=== PATIENT | male | born 1970 | race Caucasian/White ===

== ENCOUNTER 2022-01-15 00:44 | Day surgery (SDC) | payer BC, SELFPAY ==
[2022-01-01 13:58] VITALS: BMI 29.5
--- NOTE | 2022-01-14 10:43 | P.PNAN_ITS ---
Anes - Initial Pre Proc Eval Procedure: Operation Date: 01/15/22 08:30 Proposed Procedures p Screening Colonoscopy - Giuseppe Gurrola MD Date/Time: 01/14/22 10:43 Surgeon: Giuseppe Gurrola MD Pre Op Diagnosis: neoplasm screening Patient Data Age: 51 Gender: M Height: 1.75 m Weight: 90.9 kg Allergies Allergy/AdvReac Type Severity Reaction Status Date / Time Iodinated Contrast Media Allergy Mild Rash Verified 01/15/22 07:09 Home Medications Medication Instructions Recorded Confirmed Type azelastine 137 mcg (0.1 %) nasal 2 spray intranasal Q12H #30 mL 11/17/21 01/01/22 Rx spray aerosol carvedilol 25 mg tablet 25 mg PO Q12H #180 tabs 11/17/21 01/01/22 Rx empagliflozin 25 mg tablet 25 mg PO DAILY #90 tabs 11/17/21 01/01/22 Rx (Jardiance) losartan 100 mg tablet 100 mg PO DAILY #90 tabs 11/17/21 01/01/22 Rx metformin 500 mg tablet,extended 500 mg PO TIDWMEAL #270 tabs 11/17/21 01/01/22 Rx release 24 hr Patient hx anesthesia problems: none Family hx anesthesia problems: none Results Review: All pre-operative results and documents have been reviewed as part of the pre- operative evaluation. [facility] Past Medical History Medical History (Updated 01/14/22 @ 10:44 by Deng Shaikh DO) Essential (primary) hypertension Type 2 diabetes mellitus without complications Family History Family History Father Hypertension Mother Hypertension Sibling Family history of diabetes mellitus in first degree relative Social History Social History Smoking status: Former smoker Second hand tobacco smoke exposure: No Smoking end date: 05/02/13 Alcohol intake: never Anes - Eval Final PreProcedure Day of Procedure 01/14/22 10:43 Patient weight: overweight Heart: regular rate and rhythm Lungs: clear to auscultation Airway: Mallampati scale class II and special considerations poor dentition Neurological: alert and oriented Last oral intake: >/= 8 hours ASA classification: III Emergent: no Anesthetic plan: proceed Anesthesia type and monitoring: general GIVS and standard monitoring Results Review: All pre-operative results and documents have been reviewed as part of the pre- operative evaluation. Informed Consent: The patient's anesthetic plan and its attendant risks and benefits were discussed with the patient/family/POA. Questions were solicited and answers provided to the satisfaction of the patient/family/POA.
[2022-01-15 07:10] VITALS: BP 145/89; PULSE 78; RESP 20; TEMP 36.4; O2SAT 100; BMI 29.7
[2022-01-15] MEDS: LACTATED RINGERS 1,000 ML 150 ML IV CONT (07:19)
[2022-01-15 07:22] LABS: Glucose Point of Care 121 mg/dl (65-105)
--- NOTE | 2022-01-15 08:16 | PM.HPGS ---
History of Present Illness History of Present Illness Consent: Risks, benefits, and alternatives have been discussed and questions answered. Patient agrees to proceed with procedure. Chief complaint: neoplasm screening Narrative: Darshan Turner is a 51 year old male here for first screening colonoscopy Review of Systems Constitutional: Constitutional: Denies headache(s) and Denies weakness Eyes: Eyes: Denies blurry vision ENT: Reports Normal hearing present, Denies headache(s) and Denies neck pain Cardiovascular: Cardiovascular: Denies chest pain and Denies dyspnea Respiratory: Respiratory: Denies dyspnea Gastrointestinal: Gastrointestinal: Reports no additional gastrointestinal complaints Genitourinary: Genitourinary: Denies dysuria Musculoskeletal: Musculoskeletal: Denies neck pain Integumentary/Breasts: Skin/Breast: Denies dry skin Neurologic: Reports Normal hearing present, Denies headache(s) and Denies weakness Psychiatric: Psychiatric: Denies anxiety Endocrine: Endocrine: Denies change in body appearance Hematologic/Lymphatic: Hematologic/Lymphatic: Denies easy bleeding Allergic/Immunologic: Allergic/Immunologic: Denies urticaria [facility] Past Medical History Medical History (Updated 01/15/22 @ 08:17 by Giuseppe Gurrola MD) Colon cancer screening Essential (primary) hypertension Type 2 diabetes mellitus without complications Family History Family History Father Hypertension Mother Hypertension Sibling Family history of diabetes mellitus in first degree relative Social History Social History Smoking status: Former smoker Second hand tobacco smoke exposure: No Smoking end date: 05/02/13 Alcohol intake: never Meds Home Medications and Allergies Home Medications Medication Instructions Recorded Confirmed Type azelastine 137 mcg (0.1 %) nasal 2 spray intranasal Q12H #30 mL 11/17/21 01/01/22 Rx spray aerosol carvedilol 25 mg tablet 25 mg PO Q12H #180 tabs 11/17/21 01/01/22 Rx empagliflozin 25 mg tablet 25 mg PO DAILY #90 tabs 11/17/21 01/01/22 Rx (Jardiance) losartan 100 mg tablet 100 mg PO DAILY #90 tabs 11/17/21 01/01/22 Rx metformin 500 mg tablet,extended 500 mg PO TIDWMEAL #270 tabs 11/17/21 01/01/22 Rx release 24 hr Allergies Allergy/AdvReac Type Severity Reaction Status Date / Time Iodinated Contrast Media Allergy Mild Rash Verified 01/15/22 07:09 Vital Signs Vital Signs - 24 hr 01/15/22 07:10 Temperature 97.6 F Pulse Rate 78 Respiratory Rate 20 Blood Pressure 145/89 H Pulse Oximetry 100 Oxygen Delivery Room Air Exam Const: General: comfortable and no acute distress HENMT: General nose exam: Normal nares present Eyes: General: appearance normal, both eyes and all related structures Neck: Neck: no JVD Resp: Auscultation: clear to auscultation bilaterally Cardio: Rate: regular rate Rhythm: regular rhythm GI: Inspection: non-distended GI Palp: Yes Soft to palpation Skin: General skin exam: normal color Neuro: General: gait normal Speech: normal speech Extrem: General: normal to inspection Psych: Mental Status: mental status grossly normal Assessment and Plan Assessment and plan (1) Colon cancer screening: Code(s): Z12.11 - Encounter for screening for malignant neoplasm of colon Status: Acute Assessment and Plan: colonoscopy
[2022-01-15 08:40] VITALS: BP 113/78; PULSE 74; RESP 18; O2SAT 95
[2022-01-15 08:50] VITALS: BP 110/77; PULSE 75; RESP 22; O2SAT 95
[2022-01-15 09:00] VITALS: BP 124/89; PULSE 71; RESP 14; O2SAT 98
== END 2022-01-15 09:05 | disposition home or self-care (01) ==
PROVIDERS: PCP Internal Medicine; Visit Provider Internal Medicine Gastroenterology
PROC: 0DJD8ZZ Inspection of Lower Intestinal Tract, Via Natural or Artificial Opening Endoscopic (ICD-10-PCS; CPT 45378; principal; 2022-01-15 08:30)
DX: Z12.11 Encounter for screening for malignant neoplasm of colon (principal); D12.5 Benign neoplasm of sigmoid colon; K63.5 Polyp of colon; E11.9 Type 2 diabetes mellitus without complications; I10 Essential (primary) hypertension; Z87.891 Personal history of nicotine dependence; Z79.84 Long term (current) use of oral hypoglycemic drugs
CPT/HCPCS: 45385; 82948; 88305; J2001; J2704; J7120

== ENCOUNTER 2024-09-19 14:03 | Outpatient (CLI) | payer BC, SELFPAY ==
--- NOTE | ~2024-09-19 | CT_ITS ---
EXAMINATION: CT sinus wo con DATE: 09/19/2024 14:43 INDICATION: Endocarditis TECHNIQUE: Computed tomography (CT) of the paranasal sinuses was performed without intravenous contra st. The dose-length product was 381.64 mGy-cm. COMPARISON: None FINDINGS: There is mucosal thickening of the maxillary, ethmoid, sphenoid sinuses. No significant muc operiosteal reaction. No significant nasal septal deviation. There is occlusion of the ostiomeatal un its. No air-fluid levels. Mastoids are pneumatized. IMPRESSION: 1. Moderate sinus disease. Reviewed, dictated and finalized at location B. IMPRESSION: 1. Moderate sinus disease.
== END 2024-09-19 14:04 | disposition home or self-care (01) ==
LOC: GOSHIMG 14:04
PROVIDERS: PCP Internal Medicine; Visit Provider Otolaryngology
DX: J31.0 Chronic rhinitis (principal); J32.9 Chronic sinusitis, unspecified; J34.2 Deviated nasal septum; J34.3 Hypertrophy of nasal turbinates; J34.89 Other specified disorders of nose and nasal sinuses
CPT/HCPCS: 70486

== ENCOUNTER 2024-11-01 07:29 | Outpatient (CLI) | payer BC, SELFPAY ==
--- NOTE | 2024-11-01 07:58 | ECG_ITS ---
Test Date: 2024-11-01 08:13:10 Measurements Intervals [place] Rate: 61 P: 40 HI: 185 QRS: -7 QRSD: 108 T: 16 QT: 388 QTc: 392 Interpretive Statements SINUS RHYTHM No previous ECG available for comparison Electronically Signed On 11-01-2024 16:48:38 CDT by Reema Hansen
[2024-11-01 08:40] LABS: Anion Gap 10 mmol/L (4-12); Blood Urea Nitrogen 15 mg/dL (9-20); Calcium 9.2 mg/dL (8.4-10.2); Carbon Dioxide 23 mmol/L (22-30); Chloride 107 mmol/L (98-107); Estimated Glomerular Filt Rate > 60; Glucose 146 mg/dL (65-110); Potassium 3.6 mmol/L (3.4-5.0); Sodium 140 mmol/L (137-145)
== END 2024-11-01 07:30 | disposition home or self-care (01) ==
LOC: ANHSURGERY 07:32
PROVIDERS: Anesthesiology; PCP Internal Medicine; Visit Provider Otolaryngology
DX: I10 Essential (primary) hypertension (principal); E11.40 Type 2 diabetes mellitus with diabetic neuropathy, unspecified; Z01.818 Encounter for other preprocedural examination
CPT/HCPCS: 36415; 80048; 93005

== ENCOUNTER 2024-11-05 01:16 | Day surgery (SDC) | payer BC, SELFPAY ==
[2024-10-29 14:17] VITALS: BMI 29.5
--- NOTE | 2024-10-29 14:45 | PC.NURSE ---
Report to the Outpatient Waiting Room, entrance under the green pavilion located off [facility], at time _0900 on date _11/05/24 . Planned Procedure Time: _1100 .? Time changes happen often and if your time is changed the preop area will call you the afternoon before. - You and your visitor will be asked to self-screen and do not enter if you have any COVID symptoms. Please call surgeon if you need to reschedule. - A mask is optional within the hospital at this time. Patients may have clear liquids (water, carbonated beverages, clear teas, apple juice) until 3 hours prior to surgery with a maximum of 20 ounces. - No food from midnight until time of surgery and no smoking, or chewing tobacco (or any form of nicotine). No chewing gum, candy or mints. - Infants may have breast milk until 4 hours before surgery, infant formula 6 hours prior to surgery. - Children will be allowed to drink immediately following surgery.? If applicable, please bring a bottle or sippy cup to assist with drinking. Juice, water, soda, and popsicles are readily available.? For infants on formula, please bring formula the day of surgery.? Pacifiers are allowed. Take only the following medications with a SIP of water on the morning of surgery: __Coreg, Tylenol, Levalbuterol DO NOT STOP ANY OF YOUR OTHER PRESCRIPTION MEDICATIONS PRIOR TO SURGERY EXCEPT THE FOLLOWING Hold all vitamins and supplements for 3 days per anesthesiologist. Medications to discontinue per physician __Vitamin D Date to take last dose__3 days prior Please no make-up, nail slovenian, hairspray, perfume, deodorant, or body powder the day of surgery.? No jewelry (including any body piercings) or valuables the day of surgery, leave them at home.? Please take a shower or bath the night before, or the morning of, surgery with an antibacterial soap.? Wear comfortable, loose fitting clothing.? Children are encouraged to wear pajamas. - Jewelry must be removed prior to entering the operating room.? Rings and piercings that are not removed may be cut off. - The hospital will not accept responsibility for valuables.? - Please leave all valuables, including medications, at home the day of surgery. If you are going home after surgery, a licensed delivery truck driver must drive you home.? - NO public transportation without another adult if you receive anesthesia. - We recommend that an adult stay with you for 24 hours following discharge. - We also recommend that you do not drive, make important decision, drink alcoholic beverages, or take any drugs that were not prescribed by your health care provider for at least 24 hours after your discharge time. For Pediatric surgeries, we recommend two adults accompany the child home. Follow any additional instructions given to you from your surgeon. Telephone instructions given to ___Don and asked if any additional questions and then verbalized understanding. Patient advised to call surgeon office or pre surgery nurse liaison [phone] if any additional questions.
[2024-11-05] VITALS (11 sets, daily range): BP systolic 129–154; BP diastolic 82–99; PULSE 70–84; RESP 12–14; TEMP 36.1–36.3; O2SAT 92–100
--- OUTSIDE RECORDS SUMMARY | 2024-11-05 01:19 | XMS_ITS | Continuity of Care Document ---
Author Organization [facility] Address [address] [place] [address] [place] [address] Phone Care Team Providers Care Security Control Center Operator Name Role Phone Kam Smith DO Unavailable Unavailable Advance Directives Directive Yes / No Effective Date File Name No Information Encounters Encounter Description Practice Location Reason(s) For Visit Diagnoses Date Provider Providers Copied on Encounter [facility], [address], [place], [place], [id number], [place] [phone] [facility] No Information Luis Mccann. [address] [place], [address], [place]. tel: [phone] Family History Family Member Type Diagnosis Age At Onset No Information Payers Payer name Insurance type Covered republican ID Authordima castellanos(s) [employer] [id number] Social History Type Description Quantity Date Captured Comments Sex Male Smoking Status No Information Chief Complaint And Reason For Visit No Information Reason For Referral Reason For Referral No Information History Of Present Illness Encounter Date Complaint History Of Prese nt Illness No Information Functional Status Date Functional Assessmen t No Information Instructions Date Instruction Additional Infor mation No Information Assessments Type Assessment Date No Information Patient Care Teams Name Effective Dates (start - stop) Status Members No Information
--- OUTSIDE RECORDS SUMMARY | 2024-11-05 01:19 | XMS_ITS | Continuity of Care Document ---
Author Organization [facility] Address [address] [place] [address] [address] [place] [address] Phone Care Team Providers Care Shoe Salesperson Name Role Phone Muehl MPT CMPT, Kaushal Unavailable Unavailable Procedures Procedure Date Employer Prevention Consultation 2021 Advance Directives Directive Yes / No Effective Date File Name No Information Encounters Encounter Description Practice Location Reason(s) For Visit Diagnoses Date Provider Providers Copied on Encounter [facility], [address] [place] [address], [place], [place], [id number], [place] tel:[phone] [place] No Information Muehl Kaushal. [address] [facility], [address], [place], [facility], [place]. tel: [phone] Referring Provider: Access Direct. Family History Family Member Type Diagnosis Age At Onset No Information Payers Payer name Insurance type Covered constitution party ID Authoriza tion(s) Invoice CI 00 Social History Type Description Quantity Date Captured [...]
--- NOTE | 2024-11-05 07:22 | WPDHPUPDATE1 ---
History and Physical Update Update Date/Time: 11/05/24 07:22 History and Physical has been reviewed, including an updated exam of the patient. There are NO changes in the patient's condition. Risks, benefits, and alternatives have been discussed and questions answered. Patient agrees to proceed with procedure.
[2024-11-05] MEDS: LACTATED RINGERS 1,000 ML 30 ML IV CONT ×2 (10:40→14:57)
[2024-11-05] MEDS: ACETAMINOPHEN 500 MG TABLET 1000 MG PO (10:40)
--- NOTE | 2024-11-05 11:37 | P.HP_ITS ---
H&P: HPI History of Present Illness Date/Time: 11/05/24 11:37 Chief Complaint: See office visit note CRS septoplasty turbinate nasal obstruction complaints Review of Systems Review of Systems: All systems reviewed & are unremarkable except as noted in HPI and below [facility] Past Medical History Medical History Colon cancer screening Essential (primary) hypertension Type 2 diabetes mellitus without complications Family History Family History Father Hypertension Mother Hypertension Sibling Family history of diabetes mellitus in first degree relative Social History Social History Smoking status: Former smoker Smokeless tobacco user: chewing tobacco Second hand tobacco smoke exposure: No Smoking end date: 05/02/13 Alcohol intake: never Lack of Transportation: No Lack of Food: Never True Current Housing: I Have Housing Concerned About Future Housing: No Difficulty Paying Gas/Electric Bills: No Difficulty Paying for Meds: No Currently Unemployed: No Education: High School Diploma/GED Difficulty w/ Childcare or Family Care: No Living arrangements: with family Spiritual care concerns: No Meds Home Medications and Allergies Home Medications ?Medication ?Instructions ?Recorded ?Confirmed ?Type levalbuterol tartrate 45 2 inh inhalation Q6H PRN shortness 05/31/22 10/29/24 Rx mcg/actuation aerosol inhaler of breath or wheezing #15 grams carvedilol 25 mg tablet 25 mg PO Q12H #180 tabs 02/03/24 10/29/24 Rx losartan 100 mg tablet 100 mg PO DAILY #90 tabs 05/30/24 10/29/24 Rx metformin 500 mg tablet,extended 500 mg PO BIDWMEAL #180 tabs 08/14/24 10/29/24 Rx release 24 hr azelastine 137 mcg (0.1 %) nasal 2 spray intranasal Q12H #30 mL 09/14/24 10/29/24 Rx spray fluticasone propionate 50 2 spray intranasal BID #16 grams 09/25/24 10/29/24 Rx mcg/actuation nasal spray,suspension (Flonase Allergy Relief) empagliflozin 25 mg tablet 25 mg PO DAILY #90 tabs 09/28/24 10/29/24 Rx (Jardiance) rosuvastatin 5 mg tablet (Crestor) 5 mg PO DAILY #90 tabs 09/28/24 10/29/24 Rx tirzepatide 15 mg/0.5 mL See Rx Instructions .Route 09/28/24 10/29/24 Rx subcutaneous pen injector .COMPLEX #6 mL (Mounjaro) acetaminophen 650 mg 650 mg PO Q12H PRN pain 10/29/24 10/29/24 History tablet,extended release (Arthritis Pain Relief (acetaminophen) ER) cholecalciferol (vitamin D3) 25 25 mcg PO DAILY 10/29/24 11/05/24 History mcg (1,000 unit) capsule (Vitamin D3) duloxetine 30 mg capsule,delayed 30 mg PO HS 10/29/24 10/29/24 History release (Cymbalta) Allergies Allergy/AdvReac Type Severity Reaction Status Date / Time atorvastatin Allergy Mild Dizziness Verified 11/05/24 10:48 Iodinated Contrast Media Allergy Mild Rash Verified 11/05/24 10:48 Vital Signs Vital Signs - 24 hr 11/05/24 10:40 Temperature 36.3 C L Pulse Rate 70 Respiratory Rate 14 Blood Pressure 134/94 H Pulse Oximetry 100 Oxygen Delivery Room Air Exam Narrative: Septal deviation turbinate hypertrophy chronic appearing sinuses Assessment and Plan Assessment and plan (1) Rhinitis: Code(s): J31.0 - Chronic rhinitis Status: Acute Assessment and Plan: OR ESS septo turbs stephen bullosa see previous office visit for exact surgical planning and risks. (2) Chronic sinusitis: Code(s): J32.9 - Chronic sinusitis, unspecified Status: Acute (3) Nasal septal deviation: Code(s): J34.2 - Deviated nasal septum Status: Acute (4) Hypertrophy of both inferior nasal turbinates: Code(s): J34.3 - Hypertrophy of nasal turbinates Status: Acute (5) Nasal obstruction: Code(s): J34.89 - Other specified disorders of nose and nasal sinuses Status: Acute
--- NOTE | 2024-11-05 11:52 | WPDANESEPPF ---
Anes - Initial Pre Proc Eval Procedure: Operation Date: 11/05/24 11:45 Proposed Procedures p Image Guided Bilateral Maxillary Antrostomy, Bilateral Total Ethmoidectomy, Frontal Sinusotomy, Left Sphenoidotomy, Left Erin Bullosa Resection, Bilateral Inferior Turbinate Reduction with Outfracture, - Braden Lockhart MD s Endoscopic Septoplasty - Braden Lockhart MD Date/Time: 11/05/24 11:52 Surgeon: Braden Lockhart MD Pre Op Diagnosis: rhinitis, chronic sinusitis, deviated septum, Patient Data Age: 53 Gender: M Height: 1.75 m Weight: 89.7 kg Last Vital Signs Temp 36.3 C L 11/05/24 10:40 Pulse 70 11/05/24 10:40 Resp 14 11/05/24 10:40 BP 134/94 H 11/05/24 10:40 Pulse Ox 100 11/05/24 10:40 O2 Del Method Room Air 11/05/24 10:40 Allergies Allergy/AdvReac Type Severity Reaction Status Date / Time atorvastatin Allergy Mild Dizziness Verified 11/05/24 10:48 Iodinated Contrast Media Allergy Mild Rash Verified 11/05/24 10:48 Home Medications ?Medication ?Instructions ?Recorded ?Confirmed ?Type levalbuterol tartrate 45 2 inh inhalation Q6H PRN shortness 05/31/22 10/29/24 Rx mcg/actuation aerosol inhaler of breath or wheezing #15 grams carvedilol 25 mg tablet 25 mg PO Q12H #180 tabs 02/03/24 10/29/24 Rx losartan 100 mg tablet 100 mg PO DAILY #90 tabs 05/30/24 10/29/24 Rx metformin 500 mg tablet,extended 500 mg PO BIDWMEAL #180 tabs 08/14/24 10/29/24 Rx release 24 hr azelastine 137 mcg (0.1 %) nasal 2 spray intranasal Q12H #30 mL 09/14/24 10/29/24 Rx spray fluticasone propionate 50 2 spray intranasal BID #16 grams 09/25/24 10/29/24 Rx mcg/actuation nasal spray,suspension (Flonase Allergy Relief) empagliflozin 25 mg tablet 25 mg PO DAILY #90 tabs 09/28/24 10/29/24 Rx (Jardiance) rosuvastatin 5 mg tablet (Crestor) 5 mg PO DAILY #90 tabs 09/28/24 10/29/24 Rx tirzepatide 15 mg/0.5 mL See Rx Instructions .Route 09/28/24 10/29/24 Rx subcutaneous pen injector .COMPLEX #6 mL (Mounjaro) acetaminophen 650 mg 650 mg PO Q12H PRN pain 10/29/24 10/29/24 History tablet,extended release (Arthritis Pain Relief (acetaminophen) ER) cholecalciferol (vitamin D3) 25 25 mcg PO DAILY 10/29/24 11/05/24 History mcg (1,000 unit) capsule (Vitamin D3) duloxetine 30 mg capsule,delayed 30 mg PO HS 10/29/24 10/29/24 History release (Cymbalta) Laboratory Tests 11/05/24 10:24 POC Capillary Glucose 92 mg/dl (65-105) Patient hx anesthesia problems: none Family hx anesthesia problems: none Results Review: All pre-operative results and documents have been reviewed as part of the pre-operative evaluation. [facility] Past Medical History Medical History Colon cancer screening Essential (primary) hypertension Type 2 diabetes mellitus without complications Family History Family History Father Hypertension Mother Hypertension Sibling Family history of diabetes mellitus in first degree relative Social History Social History Smoking status: Former smoker Smokeless tobacco user: chewing tobacco Second hand tobacco smoke exposure: No Smoking end date: 05/02/13 Alcohol intake: never Lack of Transportation: No Lack of Food: Never True Current Housing: I Have Housing Concerned About Future Housing: No Difficulty Paying Gas/Electric Bills: No Difficulty Paying for Meds: No Currently Unemployed: No Education: High School Diploma/GED Difficulty w/ Childcare or Family Care: No Living arrangements: with family Spiritual care concerns: No Anes - Eval Final PreProcedure Day of Procedure 11/05/24 11:52 Patient weight: obese Heart: regular rate and rhythm Lungs: clear to auscultation Airway: Mallampati scale class II and special considerations poor dentition Neurological: alert and oriented Last oral intake: >/= 8 hours ASA classification: III Emergent: no Anesthetic plan: proceed Anesthesia type and monitoring: general ETT and standard monitoring Results Review: All pre-operative results and documents have been reviewed as part of the pre-operative evaluation. Informed Consent: The patient's anesthetic plan and its attendant risks and benefits were discussed with the patient/family/POA. Questions were solicited and answers provided to the satisfaction of the patient/family/POA.
[2024-11-05] MEDS: LIDO 1%/EPINEPHRINE 1:100,000 50 ML VIAL 10 ML INFILTRATE (11:56)
[2024-11-05] MEDS: ceFAZolin 2 GM/D5W 50 ML 2 GM/50 ML BAG IVPB (11:56)
[2024-11-05] MEDS: OXYMETAZOLINE HCL 0.05% NAS 15 ML BTL (*BKC) 1 SPRAY NASAL ×2 (11:56→12:26)
[2024-11-05] MEDS: LIDO 1%/EPINEPHRINE 1:100,000 50 ML VIAL INFILTRATE (12:25)
[2024-11-05] MEDS: MUPIROCIN 2% OINT 22 GM TUBE 1 APPLIC EACH NARE ×2 (12:29→14:31)
--- NOTE | 2024-11-05 15:24 | W.PM.PROC2 ---
Procedure Note - Detailed Date of Procedure 11/05/24 Pre-op Diagnosis rhinitis, chronic sinusitis, deviated septum, turbinate hypertrophy nasal polyps Post-op Diagnosis Same Procedure Performed 1. Bilateral endoscopic middle turbinectomy 2. Endoscopic assisted septoplasty 3. Bilateral inferior turbinate reduction with outfracture 4. Bilateral image guided endoscopic maxillary antrostomies 5. Bilateral image guided endoscopic total ethmoidectomies 6. Bilateral image guided frontal sinus sinusotomies endoscopic 7. Left endoscopic image guided sphenoidotomy Surgeon Braden Lockhart MD Anesthesia General Indications See above Findings S shaped septum large turbinates polyp the middle turbinates stephen bullosa in the left right was flimsy full of polyps obstructing the right middle meatus really all the sinuses on the right side. Edematous polyp he tissue rhinitis type appearance and all the erythematous tissue in all the aforementioned sinuses. Description of Procedure Patient identified consent verified the preoperative holding area. Patient brought in the room. Time-out performed. General anesthesia induced endotracheal tube secured airway. Patient prepped draped positioned image guidance initiated confirmed. 0 degree endoscope utilized to the out the case other than 70 degree for the frontal sinuses. Total 20 cc 1% lidocaine [id number] parts epinephrine injected the bilateral middle turbinates bilateral inferior turbinates and nasal septum. [place] incision made left nasal septum anterior with 15 blade left nasal septal flap elevated 7 Armenian suction no perforation osteotome utilized to cross through the septum right nasal septal flap elevated no perforation. Deviated septum removed with Arnol Kendrick forceps Soha forceps and osteotome. Septum then irrigated closed with 4 interrupted 5 0 fast gut sutures. Inferior turbinates reduced in the submucosal plane after being stabbed anteriorly the 15 blade with a Roger 2.5 mm microdebrider. They were then outfractured Juana Diaz elevator. Middle turbinates left-sided stephen bullosa resected deemed to be way too flimsy the middle turbinate was then resected using straight through cutting the stump was cauterized with suction Bovie electrocautery setting of 15. Right-sided middle turbinate without a mean touching was completely lateralized influenzae stuck to the right lateral nasal wall. This was resected using straight through cut and the stump was of course suction bovied with Bovie suction cautery at a setting of 15. Bilateral maxillary antrostomies performed double ball tip probe backbiter straight through cut. As well as image guided microdebrider. Great care was taken to ensure that the surgical os connected to the natural os. Total ethmoidectomies performed with image guidance Kerrison straight through cut and microdebrider. Frontal sinusotomies performed with 70 degree scope 70 degree suction Hosemann Cobra and draft instruments. Left sphenoidotomy performed with 1 Kerrison and sphenoid punches well as image guidance. Total blood loss about 50 cc. Wound copiously irrigated sterile normal saline. Nova pack placed bilaterally Cat splints placed sutured anteriorly to yearly anteriorly using 3-0 mattress nylon suture. I performed all dictated portions of the procedure no obvious complications patient taken to PACU care the patient given back to Anesthesiology. Estimated Blood Loss 50 Drains No Packing Yes (Nova pack) Pathology None sent Complications No immediate complications Condition Stable Disposition PACU [facility] Billing Surgery - Charge Forward: Surgery Billing
[2024-11-05] MEDS: fentaNYL CITRATE INJ (*CRX) 100 MCG/2 ML VIAL 25 MCG IV PUSH ×8 (15:42→16:13)
[2024-11-05] MEDS: HYDROmorphone HCL INJ (*CRX) 1 MG/ML SYR 0.5 MG IV PUSH ×2 (16:21→16:27)
[2024-11-05] MEDS: oxyCODONE HCL (*CRX) 5 MG TAB IR PO (17:14)
== END 2024-11-05 17:52 | disposition home or self-care (01) ==
PROVIDERS: PCP Internal Medicine; Visit Provider Otolaryngology
PROC: (CPT 31256; principal; 2024-11-05 11:45)
PROC: (CPT 30520; 2024-11-05 11:45)
DX: J32.9 Chronic sinusitis, unspecified (principal); J34.3 Hypertrophy of nasal turbinates; J31.0 Chronic rhinitis; J33.8 Other polyp of sinus; J34.2 Deviated nasal septum; J34.89 Other specified disorders of nose and nasal sinuses; G89.18 Other acute postprocedural pain; I10 Essential (primary) hypertension; E11.9 Type 2 diabetes mellitus without complications; F17.220 Nicotine dependence, chewing tobacco, uncomplicated; E66.9 Obesity, unspecified; Z68.29 Body mass index [BMI] 29.0-29.9, adult; Z79.51 Long term (current) use of inhaled steroids; Z79.84 Long term (current) use of oral hypoglycemic drugs; Z79.85 Long-term (current) use of injectable non-insulin antidiabetic drugs
CPT/HCPCS: 31256; 31257; 31276; 30520; 30140; 61782; 82948; A9270; J0330; J0690; J1100; J1171; J2003; J2004; J2405; J2704; J3010; J7050; J7120

== ENCOUNTER 2025-04-18 02:44 | Day surgery (SDC) | payer BC, SELFPAY ==
[2025-04-01 15:09] VITALS: BMI 27.2
--- OUTSIDE RECORDS SUMMARY | 2025-04-18 02:47 | XMS_ITS ---
Author Organization Unknown ENCOUNTERS Encounter Performer Location Date Diagnosis Diagnosis Status Outpatient [facility] [address] [place] [address] [id number] Outpatient [facility] [address] [place] [address] [id number] [place] [facility] [address] [place] [address] [id number] [place] [facility] [address] [place] [address] [id number] [place] *Note: Encounters from your own facility or health system may be excluded. Allergies, Adverse Reactions, Alerts Allergen Type Severity Identification Date atorvastatin drug allergy 2 [id number] Iodinated Contrast Media drug allergy 2 Medications Name Date Quantity Days Supplied GPI Number
[2025-04-18 07:06] VITALS: BP 129/99; PULSE 91; RESP 18; TEMP 36.1; O2SAT 100; BMI 26.2
[2025-04-18] MEDS: LACTATED RINGERS 1,000 ML 150 ML IV CONT (07:18)
--- NOTE | 2025-04-18 07:34 | WPDANESEPPF ---
Anes - Initial Pre Proc Eval Procedure: Operation Date: 04/18/25 08:30 Proposed Procedures p Screening Colonoscopy - Giuseppe Gurrola MD Date/Time: 04/18/25 07:34 Surgeon: Giuseppe Gurrola MD Pre Op Diagnosis: Personal history of colon polyps, unspecified Patient Data Age: 54 Gender: M Height: 1.8 m Weight: 85.4 kg Last Vital Signs Temp 97 F L 04/18/25 07:06 Pulse 91 04/18/25 07:06 Resp 18 04/18/25 07:06 BP 129/99 H 04/18/25 07:06 Pulse Ox 100 04/18/25 07:06 O2 Del Method Room Air 04/18/25 07:06 Allergies Allergy/AdvReac Type Severity Reaction Status Date / Time Iodinated Contrast Media Allergy Mild Rash Verified 04/18/25 07:05 atorvastatin AdvReac Mild Dizziness Verified 04/18/25 07:05 Home Medications ?Medication ?Instructions ?Recorded ?Confirmed ?Type levalbuterol tartrate 45 2 inh inhalation Q6H PRN shortness 05/31/22 04/01/25 Rx mcg/actuation aerosol inhaler of breath or wheezing #15 grams carvedilol 25 mg tablet 25 mg PO Q12H #180 tabs 02/03/24 04/18/25 Rx losartan 100 mg tablet 100 mg PO DAILY #90 tabs 05/30/24 04/18/25 Rx metformin 500 mg tablet,extended 500 mg PO BIDWMEAL #180 tabs 08/14/24 04/18/25 Rx release 24 hr empagliflozin 25 mg tablet 25 mg PO DAILY #90 tabs 09/28/24 04/18/25 Rx (Jardiance) rosuvastatin 5 mg tablet (Crestor) 5 mg PO DAILY #90 tabs 09/28/24 04/18/25 Rx tirzepatide 15 mg/0.5 mL See Rx Instructions .Route 09/28/24 04/18/25 Rx subcutaneous pen injector .COMPLEX #6 mL (Mounjaro) acetaminophen 650 mg 650 mg PO Q12H PRN pain 10/29/24 04/01/25 History tablet,extended release (Arthritis Pain Relief (acetaminophen) ER) cholecalciferol (vitamin D3) 25 25 mcg PO DAILY 10/29/24 03/21/25 History mcg (1,000 unit) capsule (Vitamin D3) budesonide 0.25 mg/2 mL suspension 0.25 mg (2 mL) irrigation BID #60 12/20/24 04/18/25 Rx for nebulization amps azelastine 137 mcg (0.1 %) nasal 2 spray intranasal Q12H #30 mL 01/31/25 04/18/25 Rx spray mupirocin 2 % topical ointment 1 applic topical BID #44 grams 03/21/25 04/18/25 Rx (Centany) duloxetine 30 mg capsule,delayed See Rx Instructions .Route 03/31/25 04/18/25 Rx release .COMPLEX #90 caps Laboratory Tests 04/18/25 07:17 POC Capillary Glucose 72 mg/dl (65-105) Patient hx anesthesia problems: none Family hx anesthesia problems: none Results Review: All pre-operative results and documents have been reviewed as part of the pre-operative evaluation. [facility] Past Medical History Medical History Colon cancer screening Essential (primary) hypertension Type 2 diabetes mellitus without complications Family History Family History Father Hypertension Mother Hypertension Sibling Family history of diabetes mellitus in first degree relative Social History Social History Smoking status: Former smoker Smokeless tobacco user: chewing tobacco Second hand tobacco smoke exposure: No Smoking end date: 05/02/13 Alcohol intake: never Lack of Transportation: No Lack of Food: Never True Current Housing: I Have Housing Concerned About Future Housing: No Difficulty Paying Gas/Electric Bills: No Difficulty Paying for Meds: No Currently Unemployed: No Education: High School Diploma/GED Difficulty w/ Childcare or Family Care: No Living arrangements: with family Spiritual care concerns: No Anes - Eval Final PreProcedure Day of Procedure 04/18/25 07:34 Patient weight: normal Lungs: normal air movement Airway: Mallampati scale class II Neurological: alert and oriented Last oral intake: >/= 8 hours ASA classification: III Emergent: no Anesthetic plan: proceed Anesthesia type and monitoring: general GIVS and standard monitoring Results Review: All pre-operative results and documents have been reviewed as part of the pre-operative evaluation. HTN, hyperlipidemia, smoker 1ppd, s/p CABG 2023 and doing quite well. No cp or sob w walking short distances. Informed Consent: The patient's anesthetic plan and its attendant risks and benefits were discussed with the patient/family/POA. Questions were solicited and answers provided to the satisfaction of the patient/family/POA.
--- NOTE | 2025-04-18 08:02 | WPDANESEPPF ---
Anes - Initial Pre Proc Eval Procedure: Operation Date: 04/18/25 08:30 Proposed Procedures p Screening Colonoscopy - Giuseppe Gurrola MD Date/Time: 04/18/25 08:02 Surgeon: Giuseppe Gurrola MD Pre Op Diagnosis: Personal history of colon polyps, unspecified Patient Data Age: 54 Gender: M Height: 1.8 m Weight: 85.4 kg Last Vital Signs Temp 97 F L 04/18/25 07:06 Pulse 91 04/18/25 07:06 Resp 18 04/18/25 07:06 BP 129/99 H 04/18/25 07:06 Pulse Ox 100 04/18/25 07:06 O2 Del Method Room Air 04/18/25 07:06 Allergies Allergy/AdvReac Type Severity Reaction Status Date / Time Iodinated Contrast Media Allergy Mild Rash Verified 04/18/25 07:05 atorvastatin AdvReac Mild Dizziness Verified 04/18/25 07:05 Home Medications ?Medication ?Instructions ?Recorded ?Confirmed ?Type levalbuterol tartrate 45 2 inh inhalation Q6H PRN shortness 05/31/22 04/01/25 Rx mcg/actuation aerosol inhaler of breath or wheezing #15 grams carvedilol 25 mg tablet 25 mg PO Q12H #180 tabs 02/03/24 04/18/25 Rx losartan 100 mg tablet 100 mg PO DAILY #90 tabs 05/30/24 04/18/25 Rx metformin 500 mg tablet,extended 500 mg PO BIDWMEAL #180 tabs 08/14/24 04/18/25 Rx release 24 hr empagliflozin 25 mg tablet 25 mg PO DAILY #90 tabs 09/28/24 04/18/25 Rx (Jardiance) rosuvastatin 5 mg tablet (Crestor) 5 mg PO DAILY #90 tabs 09/28/24 04/18/25 Rx tirzepatide 15 mg/0.5 mL See Rx Instructions .Route 09/28/24 04/18/25 Rx subcutaneous pen injector .COMPLEX #6 mL (Mounjaro) acetaminophen 650 mg 650 mg PO Q12H PRN pain 10/29/24 04/01/25 History tablet,extended release (Arthritis Pain Relief (acetaminophen) ER) cholecalciferol (vitamin D3) 25 25 mcg PO DAILY 10/29/24 03/21/25 History mcg (1,000 unit) capsule (Vitamin D3) budesonide 0.25 mg/2 mL suspension 0.25 mg (2 mL) irrigation BID #60 12/20/24 04/18/25 Rx for nebulization amps azelastine 137 mcg (0.1 %) nasal 2 spray intranasal Q12H #30 mL 01/31/25 04/18/25 Rx spray mupirocin 2 % topical ointment 1 applic topical BID #44 grams 03/21/25 04/18/25 Rx (Centany) duloxetine 30 mg capsule,delayed See Rx Instructions .Route 03/31/25 04/18/25 Rx release .COMPLEX #90 caps Laboratory Tests 04/18/25 07:17 POC Capillary Glucose 72 mg/dl (65-105) Patient hx anesthesia problems: none Family hx anesthesia problems: none Results Review: All pre-operative results and documents have been reviewed as part of the pre-operative evaluation. [facility] Past Medical History Medical History Colon cancer screening Essential (primary) hypertension Type 2 diabetes mellitus without complications Family History Family History Father Hypertension Mother Hypertension Sibling Family history of diabetes mellitus in first degree relative Social History Social History Smoking status: Former smoker Smokeless tobacco user: chewing tobacco Second hand tobacco smoke exposure: No Smoking end date: 05/02/13 Alcohol intake: never Lack of Transportation: No Lack of Food: Never True Current Housing: I Have Housing Concerned About Future Housing: No Difficulty Paying Gas/Electric Bills: No Difficulty Paying for Meds: No Currently Unemployed: No Education: High School Diploma/GED Difficulty w/ Childcare or Family Care: No Living arrangements: with family Spiritual care concerns: No Anes - Eval Final PreProcedure Day of Procedure 04/18/25 08:02 Patient weight: overweight Lungs: normal air movement Airway: Mallampati scale and special considerations (Teeth in very poor condition, none loose. ) Neurological: alert and oriented Last oral intake: >/= 8 hours ASA classification: III Emergent: no Anesthetic plan: proceed Anesthesia type and monitoring: general GIVS and standard monitoring Results Review: All pre-operative results and documents have been reviewed as part of the pre-operative evaluation. HTN, hyperlipidemia, DM fsbs 72, chews tobacco, active w hunting/fishing, no cp or sob. Informed Consent: The patient's anesthetic plan and its attendant risks and benefits were discussed with the patient/family/POA. Questions were solicited and answers provided to the satisfaction of the patient/family/POA.
--- NOTE | 2025-04-18 08:16 | PM.HPGS ---
History of Present Illness History of Present Illness Consent: Risks, benefits, and alternatives have been discussed and questions answered. Patient agrees to proceed with procedure. Chief complaint: Personal history of colon polyps, unspecified Narrative: Darshan Turner is a 54 year old male with colon polyp 3 years ago Review of Systems Review of Systems: All systems reviewed & are unremarkable except as noted in HPI and below PMFSH Past Medical History Medical History Colon cancer screening Essential (primary) hypertension Type 2 diabetes mellitus without complications Family History Family History Father Hypertension Mother Hypertension Sibling Family history of diabetes mellitus in first degree relative Social History Social History Smoking status: Former smoker Smokeless tobacco user: chewing tobacco Second hand tobacco smoke exposure: No Smoking end date: 05/02/13 Alcohol intake: never Lack of Transportation: No Lack of Food: Never True Current Housing: I Have Housing Concerned About Future Housing: No Difficulty Paying Gas/Electric Bills: No Difficulty Paying for Meds: No Currently Unemployed: No Education: High School Diploma/GED Difficulty w/ Childcare or Family Care: No Living arrangements: with family Spiritual care concerns: No Meds Home Medications and Allergies Home Medications ?Medication ?Instructions ?Recorded ?Confirmed ?Type levalbuterol tartrate 45 2 inh inhalation Q6H PRN shortness 05/31/22 04/01/25 Rx mcg/actuation aerosol inhaler of breath or wheezing #15 grams carvedilol 25 mg tablet 25 mg PO Q12H #180 tabs 02/03/24 04/18/25 Rx losartan 100 mg tablet 100 mg PO DAILY #90 tabs 05/30/24 04/18/25 Rx metformin 500 mg tablet,extended 500 mg PO BIDWMEAL #180 tabs 08/14/24 04/18/25 Rx release 24 hr empagliflozin 25 mg tablet 25 mg PO DAILY #90 tabs 09/28/24 04/18/25 Rx (Jardiance) rosuvastatin 5 mg tablet (Crestor) 5 mg PO DAILY #90 tabs 09/28/24 04/18/25 Rx tirzepatide 15 mg/0.5 mL See Rx Instructions .Route 09/28/24 04/18/25 Rx subcutaneous pen injector .COMPLEX #6 mL (Mounjaro) acetaminophen 650 mg 650 mg PO Q12H PRN pain 10/29/24 04/01/25 History tablet,extended release (Arthritis Pain Relief (acetaminophen) ER) cholecalciferol (vitamin D3) 25 25 mcg PO DAILY 10/29/24 03/21/25 History mcg (1,000 unit) capsule (Vitamin D3) budesonide 0.25 mg/2 mL suspension 0.25 mg (2 mL) irrigation BID #60 12/20/24 04/18/25 Rx for nebulization amps azelastine 137 mcg (0.1 %) nasal 2 spray intranasal Q12H #30 mL 01/31/25 04/18/25 Rx spray mupirocin 2 % topical ointment 1 applic topical BID #44 grams 03/21/25 04/18/25 Rx (Centany) duloxetine 30 mg capsule,delayed See Rx Instructions .Route 03/31/25 04/18/25 Rx release .COMPLEX #90 caps Allergies Allergy/AdvReac Type Severity Reaction Status Date / Time Iodinated Contrast Media Allergy Mild Rash Verified 04/18/25 07:05 atorvastatin AdvReac Mild Dizziness Verified 04/18/25 07:05 Vital Signs Vital Signs - 24 hr 04/18/25 07:06 Temperature 97 F L Pulse Rate 91 Respiratory Rate 18 Blood Pressure 129/99 H Pulse Oximetry 100 Oxygen Delivery Room Air Exam Const: General: comfortable and no acute distress HENMT: Face/Nose/Sinus: Normal nares present Eyes: General: appearance normal, both eyes and all related structures Neck: Neck: no JVD Resp: Auscultation: clear to auscultation bilaterally Cardio: Rate: regular rate Rhythm: regular rhythm GI: Inspection: non-distended GI Palp: Yes Soft to palpation Skin: General skin exam: normal color Extrem: General: normal to inspection Psych: Mental Status: mental status grossly normal Assessment and Plan Assessment and plan (1) Colon cancer screening: Code(s): Z12.11 - Encounter for screening for malignant neoplasm of colon Status: Acute Assessment and Plan: colonoscopy
--- NOTE | 2025-04-18 08:34 | S_PTH ---
PATIENT: Darshan Turner LOC: [facility]#:[id number] AGE/SX: 54/M ROOM: RE04/18/[address]: Giuseppe Gurrola MD : 1970 BED: DIS: 04/18/2025 SPEC #: [id number] RECD: 04/18/25 10:55 STATUS: OTILIA REJulianne #: [id number] SHAHLA: 04/18/25 08:[address]: Giuseppe Gurrola DEPT: [facility] Surgical RECD BY: Jennyfer Reyna ENTERED: 04/18/25 10:55 SP TYPE: Surgical OTHR DR: Grover Doyle DO Tissues: A - Colon Polypectomy Procedures: Hematoxylin and Eosin Stain Gross and Microscopic Level 4
[2025-04-18 08:36] VITALS: BP 105/81; PULSE 92; RESP 18; O2SAT 98
[2025-04-18 08:46] VITALS: BP 115/79; PULSE 82; RESP 18; O2SAT 100
[2025-04-18 08:56] VITALS: BP 115/80; PULSE 80; RESP 18; O2SAT 100
== END 2025-04-18 09:03 | disposition home or self-care (01) ==
PROVIDERS: PCP Internal Medicine; Referring Provider Internal Medicine Gastroenterology; Visit Provider Internal Medicine Gastroenterology
PROC: 0DJD8ZZ Inspection of Lower Intestinal Tract, Via Natural or Artificial Opening Endoscopic (ICD-10-PCS; CPT 45378; principal; 2025-04-18 08:30)
DX: Z12.11 Encounter for screening for malignant neoplasm of colon (principal); K63.5 Polyp of colon; K64.8 Other hemorrhoids; E78.5 Hyperlipidemia, unspecified; I10 Essential (primary) hypertension; E11.9 Type 2 diabetes mellitus without complications; F17.220 Nicotine dependence, chewing tobacco, uncomplicated; Z79.51 Long term (current) use of inhaled steroids; Z79.84 Long term (current) use of oral hypoglycemic drugs; Z79.85 Long-term (current) use of injectable non-insulin antidiabetic drugs
CPT/HCPCS: 45385; 82948; 88305; J2003; J2704; J7120